=== PATIENT | female | born 1985 | race Caucasian/White ===

== ENCOUNTER 2020-03-01 23:17 | Emergency (ER) | payer BC ==
[~2020-03-01] VITALS: Ht 167.6 cm; Wt 83.9 kg
[2020-03-01 23:35] VITALS: BP 149/94
== END 2020-03-02 01:46 | disposition home or self-care (01) ==
LOC: ER 23:23 → EEVIPCON 23:23 → ER 03-02 01:46
DX: J01.00 Acute maxillary sinusitis, unspecified (principal); Z20.828 Contact with and (suspected) exposure to other viral communicable diseases
CPT/HCPCS: 71045; 87070; 87635; 87804; 87880; 99001